=== PATIENT | male | born 1965 | race Caucasian/White ===

== ENCOUNTER 2020-08-28 08:10 | Emergency (ER) | payer OTHER, SELFPAY ==
--- NOTE | 2020-08-28 08:34 | ED.GENADULT ---
HPI - General Adult General Chief complaint: Headache Stated complaint: exposure to covid Time Seen by Provider: 08/28/20 08:20 Source: patient and family Mode of arrival: Ambulatory Limitations: no limitations History of Present Illness HPI narrative: This is a 55-year-old gentleman who comes to the emergency department for exposure to coronavirus-19 patient has had mild symptoms with headache but denies any other symptoms. Patient states that a teenage son and his father have both been in close contact with the family over the last week. The teenage son was tested week ago Monday or almost 14 days ago but did not receive his results for approximately a week. He did test positive and in the interim between initially being tested and resulted he spent time in their intermittently on mask. The teenager's father also works with this patient and they often spend close contact in the office and not always masked. Patient has a history of hypertension, no regular tobacco use, no illicit. Patient presents with her significant other who is also had headache and some mild nausea and a mild cough and they were also exposed. Related Data Allergies Allergy/AdvReac Type Severity Reaction Status Date / Time No Known Drug Allergies Allergy Verified 08/28/20 08:36 Review of Systems Review of Systems ROS Unobtainable: All systems reviewed & are unremarkable except as noted in HPI and below Patient History Medical History (Updated 08/28/20 @ 09:16 by Hyacinth Chahal DO) Hypertension Social History Smoking Status: Former smoker Smoking Status: Former smoker Substance Use Type: marijuana Exam Narrative Exam Narrative: GENERAL: Alert and oriented x three, well-nourished, well-appearing male in mild distress HEENT: Head normocephalic, atraumatic, EOMI, pupils reactive, face symmetric, moist mucous membranes NECK: Supple, full range of motion CARDIOVASCULAR: Regular rate and rhythm without murmurs, rubs or gallops. RESPIRATORY: Breath sounds equal bilaterally, no wheezes rales or rhonchi. ABDOMEN: Soft, nontender. Normoactive bowel sounds all 4 quadrants. No guarding or rebound, rigidity, no mass : No CVA tenderness EXTREMITIES: Normal range of motion, no clubbing or edema. Neurovascularly intact NEUROLOGICAL: Cranial nerves II through XII grossly intact. Moving all extremities SKIN: Warm, dry, no petechiae, no rashes or lesions. Initial Vital Signs Initial Vital Signs: Vital Signs Temperature 98.3 F 08/28/20 08:37 Pulse Rate 79 08/28/20 08:37 Respiratory Rate 18 08/28/20 08:37 Blood Pressure 159/103 H 08/28/20 08:37 Pulse Oximetry 99 08/28/20 08:37 Course Orders Ordered: ED Orders 08/28/20 08:30 COVID19 Stat Vital Signs Vital signs: Vital Signs - 8 hr 08/28/20 08:37 Temperature 98.3 F Pulse Rate 79 Respiratory Rate 18 Blood Pressure 159/103 H Pulse Oximetry 99 Medical Decision Making Lab Data Labs: Lab Results 08/28/20 Range/Units 08:30 COVID-19 PCR Negative (Negative) Discharge Plan Departure Patient Disposition: Home Clinical Impression: Headache, Close exposure to 2019-nCoV Instructions: DI for COVID-19 (Suspected or Confirmed ) Activity Restrictions/Additional Instructions: Your test today your test today was negative for coronavirus 19. I would continue to self isolate for the recommended. It time and if having worsening symptoms be a re-evaluated. *What to do: * per recommendations from the CDC and the [facility] Department of Health * stay home except to get medical care. Restrict activities outside your home, except for getting medical care. Do not go to work, school, or public areas. Avoid using public transportation, ride sharing, or taxis. * separate yourself from other people in your home. * call ahead before visiting your doctor * Wear a face mask * Cover your coughs and sneezes * Clean your hands often * Avoid sharing household items * Clean all high-touch services every day * Monitor your symptoms and seek prompt medical attention if your illness is worsening, particularly with difficulty in breathing. Discussed continuing home isolation * for individuals with symptoms who are confirmed or suspected cases of COVID-19 and are directed to care for themselves at home, discontinue home isolation under the following conditions: 1. At least 72 hours have passed since recovery, defined as resolution of fever without the use of fever reducing medications, and improvement in respiratory symptoms (cough, shortness of breath) AND, 2. At least 7 days have passed since symptoms 1st appeared Individuals with laboratory confirmed COVID-19 who have not had any symptoms may discontinue home isolation when at least 7 days have passed since the date of their 1st COVID-19 diagnostic test and have had no subsequent illness
[2020-08-28 08:37] VITALS: BP 159/103; PULSE 79; RESP 18; TEMP 36.8; O2SAT 99; BMI 31.6
[2020-08-28 09:02] LABS: COVID19 -Nasal RAPID Negative (Negative)
[2020-08-28 09:40] VITALS: BP 145/95; PULSE 62; RESP 18; O2SAT 98
== END 2020-08-28 09:42 | disposition home or self-care (01) ==
PROVIDERS: Emergency Provider Emergency Medicine
DX: Z03.818 Encounter for observation for suspected exposure to other biological agents ruled out (principal); R51.9 Headache, unspecified; I10 Essential (primary) hypertension
CPT/HCPCS: 87635; 99281; 99282

== ENCOUNTER → 2021-10-05 11:14 | Outpatient (CLI) | payer OTHER, SELFPAY ==
[2021-10-05 11:50] LABS: COVID19 -Nasal RAPID POSITIVE (Negative)
== END ==
PROVIDERS: Visit Provider Nurse Practitioner Family
DX: R50.9 Fever, unspecified (principal); R52 Pain, unspecified
CPT/HCPCS: 87635

== ENCOUNTER 2024-03-21 08:49 | Emergency (ER) | payer OTHER, SELFPAY ==
[2024-03-21 08:58] VITALS: BP 176/98; PULSE 88; RESP 19; TEMP 37.2; O2SAT 96; BMI 29.9
--- NOTE | 2024-03-21 09:01 | DI.RAD.S_ITS ---
PROCEDURE: XR FOOT RT MIN 3V INDICATIONS: felt a snap and pain when running TECHNIQUE: 3 views of the foot were acquired. COMPARISON: None. FINDINGS: Bones: No fractures or dislocations. No suspicious bony lesions. Soft tissues: No tibiotalar joint effusion. Achilles tendon appears normal. IMPRESSION: No acute bony abnormality. Dictated by: Patricia Ken MD, PhD on 03/21/2024 at 9:19 Approved by: Patriica Ken MD, PhD on 03/21/2024 at 9:20
--- NOTE | 2024-03-21 09:52 | DI.RAD.S_ITS ---
PROCEDURE: XR CALCANEOUS RT MIN 2V INDICATIONS: pain injury unable to bear wt TECHNIQUE: Two views of the calcaneus were acquired. COMPARISON: None. FINDINGS: Bones: No fractures or dislocations. No suspicious bony lesions. Small calcaneal bone spurs. Soft tissues: No suspicious calcifications. Achilles tendon appears normal. IMPRESSION: No acute bony abnormality. Dictated by: Patricia Ken MD, PhD on 03/21/2024 at 10:14 Approved by: Patricia Ken MD, PhD on 03/21/2024 at 10:14
--- NOTE | 2024-03-21 09:55 | ED_ITS ---
HPI - Extremity Injury (Lower) General Chief Complaint: Extremity Injury, Lower Stated Complaint: Rt heel sports injury Time Seen by Provider: 03/21/24 09:52 History of Present Illness HPI Narrative: Is a 59-year-old male who presents today with ongoing right heel pain. He reports that a few weeks ago he did something to it is a little bit bruised and tender. He had no significant injury he did not fall or jump from any sort of height. Last night while playing soccer he felt a sudden onset sharp pain and snap. Today he is unable to bear weight. He is flex and extend. Achilles feels intact. Really tender on the plantar side. No other injury Related Data Home Medications Medication Instructions Recorded Confirmed lisinopril 20 mg tablet 20 mg PO DAILY 10/05/21 10/05/21 ropinirole 1 mg tablet 1 mg PO DAILY 10/05/21 10/05/21 Allergies Allergy/AdvReac Type Severity Reaction Status Date / Time No Known Drug Allergies Allergy Verified 10/05/21 11:24 Patient History Medical History Hypertension Social History Smoking Status: Former smoker Smoking Status: Former smoker alcohol intake frequency: 0-2 drinks per day Substance Use Type: marijuana Exam Initial Vital Signs Initial Vital Signs: Vital Signs Temperature 98.9 F 03/21/24 08:58 Pulse Rate 88 03/21/24 08:58 Respiratory Rate 19 03/21/24 08:58 Blood Pressure 176/98 H 03/21/24 08:58 Pulse Oximetry 96 03/21/24 08:58 Oxygen Delivery Method Room Air 03/21/24 08:58 GENERAL: Well-appearing, well-nourished and in no acute distress. CARDIOVASCULAR: peripheral pulses in tact, cap refill <2 sec RESPIRATORY: No respiratory distress, speaks in full sentences without difficulty [ABDOMEN: Soft, nontender, no guarding or rebound] EXTREMITIES: Normal range of motion, no clubbing or edema. Neurovascularly intact Right lower extremity heel is tender. Negative iqbal test. Distal pedal pulse in tact able to flex and extend calf is nontender swollen. Achilles feels intact without any sort of rupture NEUROLOGICAL: Cranial nerves II through XII grossly intact. Normal gait and speech. SKIN: Warm, dry, no petechiae, no rashes or lesions. Course Orders Ordered: ED Orders 03/21/24 09:01 XR foot RT min 3V Stat 03/21/24 09:52 XR calcaneus RT min 2V Stat Vital Signs Vital signs: Vital Signs - 8 hr 03/21/24 08:58 03/21/24 10:30 Temperature 98.9 F Pulse Rate 88 Respiratory Rate 19 18 Blood Pressure 176/98 H Pulse Oximetry 96 Oxygen Delivery Method Room Air MDM - Extremity Injury (Lower) Imaging Data Extremity x-ray #1: Radiologist's Impression: PROCEDURE: XR FOOT RT MIN 3V INDICATIONS: felt a snap and pain when running TECHNIQUE: 3 views of the foot were acquired. COMPARISON: None. FINDINGS: Bones: No fractures or dislocations. No suspicious bony lesions. Soft tissues: No tibiotalar joint effusion. Achilles tendon appears normal. IMPRESSION: No acute bony abnormality. Dictated by: Patricia Ken MD, PhD on 03/21/2024 at 9:19 [facility] Narrative Medical decision making narrative: Patient 59-year-old male who presents with right heel pain. No traumatic injury. No suspicion for any sort of back pain. No evidence of Achilles rupture. Possibly a bruise. He has given a walking boot and crutches. Supportive care only. However if pain continues may require outpatient MRI. Discharge Plan Departure Patient Disposition: Home Clinical Impression: Foot sprain Instructions: DI for Foot Sprain Activity Restrictions/Additional Instructions: *You have been diagnosed with foot sprain *What to do: At this time use walking boot as needed crutches as needed elevate and ice. You may require outpatient MRI. However today x-rays are negative. *Continue to take medications as directed Tylenol Motrin as needed for pain *Follow up with your primary care provider in 2-3 days or call [phone] *Return to ER if you should have increasing pain inability to walk or any new, worsening or concerning symptoms Prescriptions: No Action lisinopril 20 mg tablet 20 mg PO DAILY ropinirole 1 mg tablet 1 mg PO DAILY Stand Alone Forms: Patient Portal/API
[2024-03-21 10:30] VITALS: RESP 18
== END 2024-03-21 10:33 | disposition home or self-care (01) ==
PROVIDERS: Emergency Provider Emergency Medicine
DX: S93.691A Other sprain of right foot, initial encounter (principal); X58.XXXA Exposure to other specified factors, initial encounter
CPT/HCPCS: 73630; 73650; 99283

== ENCOUNTER 2024-12-02 19:02 | Emergency (ER) | payer SELFPAY ==
[2024-12-02 19:07] VITALS: BP 163/103; PULSE 67; RESP 18; TEMP 37; O2SAT 97; BMI 30.3
--- NOTE | 2024-12-02 22:17 | ED_ITS ---
HPI - Allergic Reaction General Chief complaint: Allergic Reaction Stated complaint: allergic reaction, HBP Time Seen by Provider: 12/02/24 21:58 Source: patient Mode of arrival: Ambulatory History of Present Illness HPI narrative: Patient is a 59-year-old male presenting today with what he thinks his allergic reaction. He has had allergic reactions like this before his face gets flushed and really itchy. He has been ongoing for about a week. He took some Benadryl, it does help with the itchiness. He has no tongue swelling lip swelling no other rash. Nursing note reports he would rash on his chest but he does not have 1. No new medications soaps or other He also reports that he had been out of his lisinopril for 1 week, has a refill waiting for him at the pharmacy but he did not refill it yet. was concerned because his blood pressure was high. Related Data Home Medications Medication Instructions Recorded Confirmed lisinopril 20 mg tablet 20 mg PO DAILY 10/05/21 10/05/21 ropinirole 1 mg tablet 1 mg PO DAILY 10/05/21 10/05/21 Previous Rx's Medication Instructions Recorded prednisone 20 mg tablet 40 mg (2 x 20 mg) PO DAILY #10 tabs 12/02/24 Allergies Allergy/AdvReac Type Severity Reaction Status Date / Time No Known Drug Allergies Allergy Verified 10/05/21 11:24 Patient History Medical History Hypertension Social History Smoking Status: Former smoker Smoking Status: Former smoker alcohol intake frequency: 0-2 drinks per day Exam Initial Vital Signs Initial Vital Signs: Vital Signs Temperature 98.6 F 12/02/24 19:07 Pulse Rate 67 12/02/24 19:07 Respiratory Rate 18 12/02/24 19:07 Blood Pressure 163/103 H 12/02/24 19:07 Pulse Oximetry 97 12/02/24 19:07 Oxygen Delivery Method Room Air 12/02/24 19:07 GENERAL: Alert well-appearing 59-year-old male and in no acute distress. HEENT: Head atraumatic,EOMI, pupils reactive, face symmetric, moist mucous membranes CARDIOVASCULAR: Regular rate and rhythm without murmurs, rubs or gallops. RESPIRATORY: Breath sounds equal bilaterally, no wheezes rales or rhonchi. ABDOMEN: Soft, nontender. Normoactive bowel sounds all 4 quadrants. No guarding or rebound. EXTREMITIES: Normal range of motion, no clubbing or edema. Neurovascularly intact NEUROLOGICAL: Alert and oriented x4.Normal gait and speech. Cranial nerves II through XII grossly intact. SKIN: No urticaria cheeks are blanchable erythematous no vesicles Course Vital Signs Vital signs: Vital Signs - 8 hr 12/02/24 19:07 12/02/24 22:21 12/02/24 22:32 Temperature 98.6 F Pulse Rate 67 66 Respiratory Rate 18 Blood Pressure 163/103 H Pulse Oximetry 97 96 98 Oxygen Delivery Method Room Air 12/02/24 22:33 12/02/24 22:33 Temperature Pulse Rate 61 Respiratory Rate Blood Pressure 158/96 H Pulse Oximetry 97 Oxygen Delivery Method Room Air MDM - Allergic Reaction MDM Narrative Medical decision making narrative: Patient has itching red face ongoing. He has no evidence of anaphylaxis no other sign of urticaria. This is happened to him before he reports that prednisone has helped in the past. Blood pressure is noted to be elevated but has been out of his lisinopril for 1 week. He was otherwise asymptomatic. No need for blood work or workup. Discharge Plan Departure Patient Disposition: Home Clinical Impression: Hypertension, Allergic reaction Instructions: DI for Hives Activity Restrictions/Additional Instructions: *You have been diagnosed with allergic reaction hypertension *What to do: At this time we will try prednisone to see if it helps your rash. Please refill and take your blood pressure medications *Continue to take medications as directed Prednisone 40 mg once a day for 5 days[facility] Benadryl 25-50 mg every 6 hours if needed for itching *Follow up with your primary care provider in 2-3 days or call [phone] *Return to ER if you should have increased difficulty breathing chest pain shortness of or any new, worsening or concerning symptoms Prescriptions: New prednisone 20 mg tablet 40 mg PO DAILY Qty: 10 0RF No Action lisinopril 20 mg tablet 20 mg PO DAILY ropinirole 1 mg tablet 1 mg PO DAILY Referrals: Miscellaneous,Doctor, MD [Primary Care Provider] - Stand Alone Forms: Patient Portal/API/Survey
[2024-12-02 22:21] VITALS: PULSE 66; O2SAT 96
[2024-12-02 22:32] VITALS: O2SAT 98
[2024-12-02 22:33] VITALS: BP 158/96; PULSE 61; O2SAT 97
== END 2024-12-02 22:45 | disposition home or self-care (01) ==
PROVIDERS: Emergency Provider Emergency Medicine
DX: I10 Essential (primary) hypertension (principal); T78.40XA Allergy, unspecified, initial encounter; Z87.891 Personal history of nicotine dependence
CPT/HCPCS: 99281